=== PATIENT | female | born 1990 | race Caucasian/White ===

== ENCOUNTER 2018-09-10 21:43 | Emergency (ER) | payer OTHER ==
[2018-09-10 22:11] VITALS: RESP 18; TEMP 98.2; O2SAT 100
[2018-09-10] MEDS ORDERED: Sodium Chloride 0.9% 1,000 ML IV ONE (22:20)
--- NOTE | 2018-09-10 22:20 | C.PDOC ---
History Of Present Illness 28 year old female, , 6 weeks presents to the ED c/o vaginal bleeding. Patient denies fever, chills, nausea, vomit, diarrhea, back pain, vaginal discharge, dysuria, hematuria. Time Seen by Provider: 09/10/18 22:19 Chief Complaint (Nursing): Female Genitourinary History Per: Patient History/Exam Limitations: no limitations Onset/Duration Of Symptoms: Days Current Symptoms Are (Timing): Still Present Quality Of Discomfort: "Pain" Associated Symptoms: denies: Nausea, Vomiting, Diarrhea, Urinary Symptoms Recent travel outside of the [place]: No Additional History Per: Patient Abnormal Vaginal Bleeding: Yes Last Menstral Period: 07/31/18 : 2 Para: 1 Past Medical History Reviewed: Historical Data, Nursing Documentation, Vital Signs Vital Signs: Last Vital Signs Temp 98.2 F 09/10/18 22:01 Pulse 90 09/10/18 22:01 Resp 18 09/10/18 22:01 BP 121/75 09/10/18 22:01 Pulse Ox 100 09/10/18 22:01 - Medical History PMH: Hypothyroidism Surgical History: No Surg Hx Family History: States: Unknown Family Hx - Social History Hx Alcohol Use: Yes Hx Substance Use: No - Immunization History Hx Tetanus Toxoid Vaccination: No Hx Influenza Vaccination: No Hx Pneumococcal Vaccination: No Review Of Systems Constitutional: Negative for: Fever, Chills Cardiovascular: Negative for: Chest Pain, Palpitations Respiratory: Negative for: Shortness of Breath Gastrointestinal: Negative for: Nausea, Vomiting, Abdominal Pain Genitourinary: Positive for: Vaginal Bleeding. Negative for: Dysuria, Hematuria, Vaginal Discharge Musculoskeletal: Negative for: Back Pain Neurological: Negative for: Weakness, Numbness Physical Exam - Physical Exam Appears: Non-toxic, No Acute Distress Skin: Warm, Dry Head: Normacephalic Eye(s): bilateral: Normal Inspection Oral Mucosa: Moist Neck: Supple Chest: Symmetrical Cardiovascular: Rhythm Regular Respiratory: No Rales, No Rhonchi, No Wheezing Gastrointestinal/Abdominal: Soft, Tenderness (mild suprapubic), No Guarding, No Rebound Extremity: Bilateral: Atraumatic, Normal Color And Temperature, Normal ROM Neurological/Psych: Oriented x3, Normal Speech, Normal Cognition Gait: Steady ED Course And Treatment - Laboratory Results Result Diagrams: 09/10/18 22:31 09/10/18 22:31 O2 Sat by Pulse Oximetry: 100 (ON RA) Pulse Ox Interpretation: Normal - CT Scan/US Pelvic US Other Rad Studies (CT/US): Read By Radiologist, Radiology Report Reviewed CT/US Interpretation: Ultrasound pelvis transvaginal. Indication: 6 weeks , vaginal bleeding. Technique: Transabdominal, transvaginal ultrasound images are obtained. Findings: The uterus is anteverted measuring 8.5x4.3x 4.9 cm. Endometrium is normal in thickness measuring 9 mm. Small amount of free fluid is noted in the pelvic cul-de-sac. Right ovary measures 3x2.6x1.5 cm. Normal right ovarian flow. The left ovary measures 2.7x3.2x2.5 cm. Left ovarian cyst measuring 1.7 cm. No identified is seen. Small amount of free fluid in endocervical canal. Impression: No intrauterine seen. Left ovarian cyst. Small amount of free pelvic fluid. Small amount of free fluid in the endocervical canal. . Electronically signed on Sep 11, 2018 1:18:28 AM EST by: Susan Cloud M.D., Certified by ABR, MSK, Neuroradiology Progress Note: Plan: - Labs. - IV fluids. - UA. - Pelvic US. Pt refused rhogam . 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/11/18 and will discuss it with her Disposition Counseled Patient/Family Regarding: Studies Performed, Diagnosis, Need For F ollowup - Disposition Referrals: Nolberto Guzman MD [Staff Provider] - Disposition: HOME/ ROUTINE Disposition Time: 22:20 Condition: FAIR Additional Instructions: Please follow up with [place] engraving supervisor Instructions: Threatened Miscarriage (DC) Forms: [employer] (Croatian) - Clinical Impression Clinical Impression: Threatened - Scribe Statement The provider has reviewed the documentation as recorded by the Scribe Maged Mendez All medical record entries made by the Scribe were at my direction and personally dictated by me. I have reviewed the chart and agree that the record accurately reflects my personal performance of the history, physical exam, medical decision making, and the department course for this patient. I have also personally directed, reviewed, and agree with the discharge instructions and disposition.
[2018-09-10 22:35] LABS: BASO % 0.3 % (0.0-2.0); EOS % 0.3 % (0.0-4.0); HEMOGLOBIN 11.8 g/dL (11.0-16.0); LYMPH % 24.2 % (20.0-40.0); MEAN CELL VOLUME 87.8 fL (81.0-99.0); MEAN CORPUSCULAR HEMOGLOBIN 29.8 pg (27.0-31.0); MEAN PLATELET VOLUME 8.1 fL (7.2-11.7); MONO # 0.6 K/uL (0.0-0.8); NEUT # 8.7 K/uL (1.8-7.0); NEUT % 70.2 % (50.0-75.0); RBC 3.96 Mil/uL (3.80-5.20); RED CELL DISTRIBUTION WIDTH 12.7 % (11.5-14.5); WHITE BLOOD COUNT 12.4 K/uL (4.8-10.8)
[2018-09-10 22:41] LABS: URINE BILIRUBIN NEGATIVE (NEGATIVE); URINE CLARITY Clear (Clear); URINE COLOR Colorless (YELLOW); URINE GLUCOSE (UA) NORMAL (Normal); URINE LEUKOCYTE ESTERASE NEG Leu/uL (Negative); URINE PROTEIN NEGATIVE (NEGATIVE); URINE UROBILINOGEN NORMAL mg/dL (0.2-1.0)
[2018-09-10 22:44] LABS: INR 1.1; PROTHROMBIN TIME 11.8 SECONDS (9.7-12.2)
[2018-09-10 22:45] LABS: URINE BLOOD 1+ (NEGATIVE)
[2018-09-10 22:48] LABS: ALB/GLOB RATIO 1.5 (1.0-2.1); ALBUMIN 4.6 g/dL (3.5-5.0); ALT/SGPT 27 U/L (9-52); AST/SGOT 21 U/L (14-36); BLOOD UREA NITROGEN 11 mg/dL (7-17); GFR NON-AFRICAN AMERICAN > 60
[2018-09-10] MEDS ORDERED: Sodium Chloride 0.9% 1,000 ML ONE (22:52)
[2018-09-11 01:07] VITALS: BP 110/70; PULSE 80
--- NOTE | 2018-09-11 10:49 | US ---
Date of service: 09/10/2018 Indication: 6 weeks preg, vag bleed Comparison: No prior study available for comparison. Technique: Real-time transabdominal pelvic ultrasound was performed. In addition a transvaginal pelvic ultrasound was necessary to better depict pelvic anatomy. Findings: Uterus measures approximately 8.5 x 4.3 x 4.9 cm. Anteverted. Endometrium measures approximately 0.9 cm in diameter. Small fluid noted within the endocervical canal. Small pelvic free fluid. The right ovary measures approximately 3.0 x 1.5 x 2.6 cm. The left ovary measures approximately 2.7 x 3.2 x 2.5 cm and contains 1.7 x 1.2 x 1.5 cm follicle/cyst. Blood flow was demonstrated to both ovaries. Impression: Fluid noted within the endocervical canal. Small pelvic free fluid. No evidence of intrauterine gestational sac. If indeed the patient is based on serum beta HCG values, the sonographic findings represent either: Very early IUP; embryonic demise; ectopic gestation. Follow-up with serial quantitative serum beta HCG measurements and post OBGYN follow-up as clinically indicated, since ectopic gestation cannot be excluded based only on sonographic findings. Preliminary impression was provided by [employer].
== END 2018-09-11 01:40 | disposition home or self-care (01) ==
LOC: C.ER 21:43
DX: O20.0 Threatened abortion (principal); Z3A.00 Weeks of gestation of pregnancy not specified
CPT/HCPCS: 76830; 76856; 80053; 81001; 84702; 85025; 85610; 85730; 86850; 86900; 96360; 99284; J7030